=== PATIENT | female | born 1985 | race Caucasian/White ===

== ENCOUNTER 2016-09-20 14:33 | Emergency (ER) | payer BC ==
[~2016-09-20] VITALS: Ht 162.6 cm; Wt 49.9 kg
[2016-09-20] MEDS ORDERED: IBUPROFEN 400 MG TABLET PO ONE (15:00)
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
[2016-09-20] MEDS ORDERED: IBUPROFEN 400 MG TABLET ONE (15:06)
--- NOTE | 2016-09-20 15:12 | NUR ---
XRAY IS BEDSIDE AT THIS TIME
[2016-09-20 16:32] VITALS: BP 112/60
--- NOTE | 2016-09-20 16:33 | NUR ---
Patient discharged to home in stable condition. Written and verbal after care instructions given. Patient verbalizes understanding of instruction. AMBUALTORY WITH STEADY GAIT.
== END 2016-09-20 16:33 | disposition home or self-care (01) ==
LOC: ER 14:36
DX: S63.502A Unspecified sprain of left wrist, initial encounter (principal); S60.812A Abrasion of left wrist, initial encounter; V43.92XA Unspecified car occupant injured in collision with other type car in traffic accident, initial encounter; Y93.89 Activity, other specified; Y92.89 Other specified places as the place of occurrence of the external cause; Y99.9 Unspecified external cause status
CPT/HCPCS: 29125; 73110; 99284; A4606; Z7610